=== PATIENT | male | born 2000 | race Two or more races ===

== ENCOUNTER 2022-02-03 22:00 | Emergency (ER) | payer OTHER ==
[2022-02-03 22:09] VITALS: BP 119/75; PULSE 98; RESP 20; TEMP 98.2; BMI 27.4
[2022-02-04] MEDS ORDERED: FLUTICASONE PROP 0.05% 16 GM NASAL SPRAY NS ONE (00:59)
[2022-02-04] MEDS ORDERED: diphenhydrAMINE HCL 25 MG CAPSULE (FP) PO ONE ×2 (00:59→01:18)
[2022-02-04] MEDS ORDERED: PSEUDOEPHEDRINE HCL 60 MG TABLET PO ONE (01:01)
[2022-02-04] MEDS ORDERED: KETOROLAC TROMETHAMINE 30 MG/1 ML VIAL IM ONE (01:11)
[2022-02-04] MEDS ORDERED: DEXAMETHASONE SOD PHOSPHATE 10 MG/1 ML VIAL IM ONE (01:11)
[2022-02-04] MEDS ORDERED: KETOROLAC TROMETHAMINE 30 MG/1 ML VIAL ONE (01:19)
[2022-02-04] MEDS ORDERED: PSEUDOEPHEDRINE HCL 60 MG TABLET ONE (01:19)
[2022-02-04] MEDS ORDERED: DEXAMETHASONE SOD PHOSPHATE 10 MG/1 ML VIAL ONE (01:19)
[2022-02-04 01:41] LABS: THROAT:GRP A STREP NOT DETECTED (NOTDETECTED)
== END 2022-02-04 01:29 | disposition home or self-care (01) ==
LOC: JER 22:00 → JERFT 22:00 → JER 02-04 01:29
PROC: 3E0233Z Introduction of Anti-inflammatory into Muscle, Percutaneous Approach (ICD-10-PCS; principal; 2022-02-04)
PROC: 3E023NZ Introduction of Analgesics, Hypnotics, Sedatives into Muscle, Percutaneous Approach (ICD-10-PCS; 2022-02-04)
DX: U07.1 COVID-19 (principal)
CPT/HCPCS: 0241U-QW; 87651; 99283-25; J1100